=== PATIENT | female | born 2005 | race African-American/Black ===

== ENCOUNTER 2024-05-30 10:32 | Emergency (ER) | payer BC, SELFPAY ==
[2024-05-30 10:45] VITALS: BP 99/60; PULSE 81; RESP 16; TEMP 36.4; O2SAT 100
--- NOTE | 2024-05-30 10:54 | ED.FEMALEGU ---
HPI - Female Genitourinary General Chief complaint: Urogenital-Female Stated complaint: vaginal issue 24 wks Time Seen by Provider: 05/30/24 11:02 Source: patient and RN notes reviewed Mode of arrival: ambulatory Limitations: no limitations History of Present Illness HPI Narrative: 19-year-old female who is 24 weeks presents with concern for vaginal itching. She reports she has white discharge that is typical for her. She reports she recently changed laundry detergent. She denies any lesions, redness, swelling. She denies any foul-smelling discharge. She denies urinary frequency, urgency, dysuria, low back pain, abdominal pain, nausea vomiting, chills, fever. MD elicited complaint: genital itching Related Data Home Medications Medication Instructions Recorded Confirmed vits no.[id number]-ferrous fum 1 tablet PO DAILY 05/30/24 05/30/24 27 mg iron-folic acid 800 mcg tablet ( Vitamin) Allergies Allergy/AdvReac Type Severity Reaction Status Date / Time No Known Allergies Allergy Verified 05/30/24 11:04 Review of Systems Review of Systems: CONSTITUTIONAL: Denies malaise, chills, sweats, or fever. CARDIOVASCULAR: Denies chest pain, palpitations, or edema. RESPIRATORY: Denies cough or dyspnea. GASTROINTESTINAL: Denies abdominal pain, nausea, vomiting, diarrhea GENITOURINARY: Denies dysuria, frequency, urgency, suprapubic pressure. Denies flank pain or hematuria. SKIN reports vaginal itching MUSCULOSKELETAL: Denies back pain or myalgia. All systems reviewed & are unremarkable except as noted in HPI and below PMFSH Comments At time of signature, agree with nursing past medical, surgical, social and family history. There is no relevant family history pertinent to the presenting complaint Exam Narrative: GENERAL: Well-appearing, well-nourished, and in no acute distress. HEAD: Normocephalic. EYES: PERRLA, conjunctivae clear. NECK: Supple. No lymphadenopathy CHEST: Clear to auscultation. No respiratory distress. HEART: Regular rate and rhythm. SKIN: Warm, dry, no rash. NEURO: Alert and oriented x3. PSYCH: Normal mood and affect Course Course Emergency Course: Patient is aware of diagnosis, understands and agrees to treatment plan. Anticipatory guidance given. Patient agrees to follow-up as directed and is aware of reasons to seek care at the emergency department. Portions of this record may have been created with voice recognition software Level of Care: Express Care Visit Vital Signs Vital signs: Vital Signs Temperature 97.5 F L 05/30/24 10:45 Pulse Rate 81 05/30/24 10:45 Respiratory Rate 16 05/30/24 10:45 Blood Pressure 99/60 L 05/30/24 10:45 Pulse Oximetry 100 05/30/24 10:45 Oxygen Delivery Room Air 05/30/24 10:45 Temperature 97.5 F L 05/30/24 10:45 Pulse Rate 81 05/30/24 10:45 Respiratory Rate 16 05/30/24 10:45 Blood Pressure 99/60 L 05/30/24 10:45 Pulse Oximetry 100 05/30/24 10:45 Oxygen Delivery Room Air 05/30/24 10:45 Reviewed. MDM - Female Genitourinary MDM Narrative Medical decision making narrative: Exam findings and UA show no acute concerns or changes; patient is non-toxic appearing and is in no distress. Patient is appropriate for outpatient treatment and follow-up. Differential Diagnosis Differential diagnosis: Likely urinary tract infection and cystitis Critical Care Time Critical Care Time Critical Care Time: No Discharge Plan Discharge Clinical Impression: Vaginal itching Patient Disposition: Home, Self-Care Condition: Stable Instructions: Yeast Infection (ED) Additional Instructions: We will send a urine culture to the lab; if the culture identifies an organism that requires antibiotic, you will receive a phone call from an urgent care staff member and an appropriate antibiotic will be prescribed. Take medication as prescribed -Follow-up with your primary care provider/OB
[2024-05-30 11:05] LABS: EDUAAPPEAR Cloudy; EDUABILI Negative (Negative); EDUABLOOD Negative (Negative); EDUACOLOR1 Yellow; EDUAGLUCOSE Negative (Negative); EDUAKETONE Negative (Negative); EDUALEUKO 1+ (Negative); EDUANITRATE Negative (Negative); EDUAPH 7.5; EDUAPROTEIN Negative (Negative); EDUAUROBILI 0.2
== END 2024-05-30 11:13 | disposition home or self-care (01) ==
PROVIDERS: Emergency Provider Nurse Practitioner
DX: O99.891 Other specified diseases and conditions complicating pregnancy (principal); Z3A.24 24 weeks gestation of pregnancy; N89.8 Other specified noninflammatory disorders of vagina
CPT/HCPCS: 81003; 87086; 99213; G0463